=== PATIENT | male | born 1940 | race Caucasian/White ===

== ENCOUNTER 2020-11-05 18:30 | Inpatient (IN) | payer OTHER ==
[~2020-11-05] VITALS: Ht 188 cm; Wt 149.1 kg
[~2020-11-05 18:30] MED LIST: ASPI81EC PO; CLOT1TC TOP; FURO40 PO; LISI20 PO; LISINOPRIL PO; METF500 PO; METOPROLOL TARTRATE PO; NEBI10 PO; NIASPAN PO; NITR.4SL SL; OXYC5 PO; POTA8 PO; PRAV20 PO; SALS750 PO; TERB24TC TOP; WARF2.5 PO; WARF5 PO
[2020-11-05 19:19] LABS: PCO2 Arterial 54.7 mmHg (35-45); PO2 Arterial 70.5 mmHg (80-100); pH Blood Arterial 7.34 (7.35-7.45)
--- NOTE | 2020-11-05 19:21 | NUR ---
6.0 ETT, 23 CM AT [facility]
[2020-11-05 19:31] LABS: BASOPHILS ABSOLUTE AUTO 0.06 K/mm3 (0.00-0.23); BASOPHILS PERCENT AUTO 1 % (0-2); EOSINOPHILS ABSOLUTE AUTO 0.17 K/mm3 (0.00-0.68); EOSINOPHILS PERCENT AUTO 2 % (0-6); Hematocrit 45.2 % (37.0-53.0); Hemoglobin 14.5 g/dL (13.5-17.5); IMMATURE GRAN ABSOLUTE AUTO 0.03 K/mm3 (0.00-0.10); IMMATURE GRAN PERCENT AUTO 0 % (0-1); LYMPHOCYTES ABSOLUTE AUTO 2.64 K/mm3 (0.84-5.20); LYMPHOCYTES PERCENT AUTO 25 % (21-46); MONOCYTES ABSOLUTE AUTO 1.15 K/mm3 (0.16-1.47); MONOCYTES PERCENT AUTO 11 % (4-13); Mean Corpuscular HGB 27.3 pg (26.0-34.0); Mean Corpuscular HGB Conc 32.1 g/dL (31.5-36.5); Mean Corpuscular Volume 85 fL (80-100); Mean Platelet Volume 9.9 fL (9.1-12.4); NEUTROPHILS ABSOLUTE AUTO 6.49 K/mm3 (1.96-9.15); NEUTROPHILS PERCENT AUTO 62 % (41-73); Platelet Count 370 K/mm3 (150-400); RDW Coefficient Variation 13.3 % (11.7-14.2); RDW Standard Deviation 41.2 fL (35.1-46.3); Red Blood Cell Count 5.31 M/mm3 (4.30-5.90); White Blood Cell Count 10.54 K/mm3 (4.00-11.30)
[2020-11-05] MEDS ORDERED: ALBU2.5V5 INH (19:31)
[2020-11-05] MEDS ORDERED: ALLO100 PO (19:31)
[2020-11-05] MEDS ORDERED: Amlodipine Bes2.5 MG PO (19:33)
[2020-11-05] MEDS ORDERED: HYDROCHLOROTH12.5 MG PO (19:35)
[2020-11-05] MEDS ORDERED: FURO40 PO (19:35)
[2020-11-05] MEDS ORDERED: MIRT15 PO (19:36)
[2020-11-05] MEDS ORDERED: TOPROL XL200 MG PO (19:36)
[2020-11-05] MEDS ORDERED: LISI20 PO (19:36)
[2020-11-05] MEDS ORDERED: NITR.4SL SL (19:37)
[2020-11-05] MEDS ORDERED: METF500 PO (19:39)
[2020-11-05] MEDS ORDERED: TAMS.4ER PO (19:39)
[2020-11-05] MEDS ORDERED: PRAVASTATIN SOD40 MG PO (19:39)
[2020-11-05] MEDS ORDERED: SPIRIVA RESPIMAT4 G3 INH (19:40)
[2020-11-05 19:46] LABS: Albumin, Blood 3.8 g/dL (3.4-5.0); Albumin/Globulin Ratio 0.8 (0.8-1.8); Bilirubin, Total 0.8 mg/dL (0.1-1.0); Calcium, Blood 9.9 mg/dL (8.5-10.1); Creatinine, Blood 1.5 mg/dL (0.60-1.20); Globulin, Blood 4.6 g/dL (2.2-4.0); Magnesium, Blood 2.3 mg/dL (1.6-2.4); Potassium, Blood 4.5 mmol/L (3.5-5.5); Total Protein, Blood 8.4 g/dL (6.4-8.2)
[2020-11-05 20:09] LABS: International Normalized Ratio 1.04; Prothrombin Time Results 11.2 Sec (9.7-11.5)
[2020-11-05 20:15] LABS: SARS-Cov-2 (COVID-19) PCR, MMC NEGATIVE (NEGATIVE)
[2020-11-06 04:56] LABS: Bun/Creatinine Ratio 14.8 (12.0-20.0); Calcium, Blood 8.4 mg/dL (8.5-10.1); Creatinine, Blood 1.35 mg/dL (0.60-1.20); Potassium, Blood 4.2 mmol/L (3.5-5.5)
--- NOTE | 2020-11-06 06:34 | NUR ---
SHIFT SUMMARY PATIENT HAS DONE WELL THRU NIGHT. WAS ABLE TO TURN LEVOPHED OFF, VERSED DRIP DOWN TO 4 MG/HR. MAINTAINED DOPAMINE DRIP @ 2 MCG/KG/MIN. SMALL BM EARLY IN SHIFT. VENT SETTINGS LOWERED FIO2, LUNG SOUNDS REMAIN CLEAR IN THE UPPER LOBES, DIMINISHED IN THE LOWERS. ASSESSMENT IS CHARTED. VSS. WILL CONTINUE TO MONITOR.
--- NOTE | 2020-11-06 08:10 | NUR ---
ASSESSMENT- PT SEDATED WITH PROPOFOL AT 10 MCG/KG/MIN AND VERSED GTT AT 4 MG/HR. NO RESPONSE TO VERBAL OR PAINFUL STIMULUS. PERRL. NO PLANS FOR SEDATION HOLIDAY TODAY-CRITICAL AIRWAY, PLANS FOR TRACH PLACEMENT. ORALLY INTUBATED, TUBE SECURE. TOLERATING VENT SETTINGS. LUNGS COARSE THROUGOUT. SUCTIONED SMALL AMOUNT CLEAR BLOODY SECRETIONS. APICAL IRREGULAR, SLOW AFIB. IV DOPAMINE STOPPED, WILL MONITOR. RIGHT WRIST IV SITE DI, LEFT AC AND LEFT WRIST PIV DI. LR AT 125 CC/HR. LEFT WRIST RADIAL LILIAM DI WITH ADEQUATE WAVEFORM, POSITIONAL. OGT TO LIS WITH CLEAR BROWN DRAINAGE. UO VIA NELSON, LEAKING-LINEN CHANGE DONE. SCDS DONE. BILATERAL WRIST RESTRAINTS FOR SAFETY.
--- NOTE | 2020-11-06 08:30 | NUR ---
DR. ALAN HERE-UPDATED. PLANS FOR TRACHEOSTOMY PLACEMENT TOMOROW AM AT 0730. CALLED -AGREEABLE.
--- NOTE | 2020-11-06 08:45 | NUR ---
DR. WEBSTER HERE-UPDATED, ASSESSED PT. CT WAS ALREADY DONE. VSS. AFIB 58-63. LILIAM POSITIONAL, BP STABLE OFF DOPAMINE.
[2020-11-06] MEDS ORDERED: ELIQUIS2.5 MG PO (13:33)
[2020-11-06] MEDS ORDERED: CLOB.05TO TOP (13:35)
[2020-11-06] MEDS ORDERED: ZESTORETIC 20-121 EA PO (13:40)
[2020-11-06] MEDS ORDERED: METF500 PO (13:41)
[2020-11-06] MEDS ORDERED: METO100ER PO (13:42)
[2020-11-06] MEDS ORDERED: MIRT15 PO (13:43)
[2020-11-06] MEDS ORDERED: NITR.4SL SL (13:44)
[2020-11-06] MEDS ORDERED: POTA20PAC PO (13:44)
[2020-11-06] MEDS ORDERED: PRAVASTATIN SOD40 MG PO (13:45)
[2020-11-06] MEDS ORDERED: SENN187 PO (13:47)
--- NOTE | 2020-11-06 14:15 | NUR ---
REPOSITIONED, COUGHING WITH MOVEMENT. ABLE TO DECREASE FIO2 TO 60%
--- NOTE | 2020-11-06 15:45 | NUR ---
PT WITH STABLE VS. CT REPORT READ-PORTABLE CHEST XRAY DONE REGARDING POSSIBLE PNEUMO, DR. WEBSTER HERE-CLEARED XRAY. TOLERATING VENT WITHOUT ANY PROBLEMS. REMAINS SEDATED. BATH DONE. NELSON LEAKING-REPLACED.
--- NOTE | 2020-11-06 18:51 | NUR ---
PT WITH STABLE VS. TOLERATING VENT. SEDATION UNCHANGED, VERSED GTT AT 4 MG/HR, PROPOFOL GTT AT 10 MCG/KG/MIN, LR AT 125 CC/HR. TUBE SECURE. REPOSITIONED. URINE VERY CLOUDY YELLOW, NELSON REPLACED EARLIER, STILL SCANT LEAKAGE. LEFT RADIAL LILIAM DI. OGT TO LIS.
[2020-11-07 03:09] LABS: Source, Urine Catheter
[2020-11-07 03:11] LABS: Bilirubin, Urine Neg (Neg); Blood, Urine 5+ (Neg); Glucose Qualitative, Urine Neg (Neg); Ketones, Urine Neg (Neg); Leukocyte Esterase, Urine 1+ (Neg); Nitrite, Urine Neg (Neg); Protein, Urine 2+ (Neg); Specific Gravity, Urine 1.025 (1.003-1.022); Urobilinogen, Urine NORM (Normal)
[2020-11-07 03:18] LABS: Amorphous Heavy (0-Heavy); Appearance, Urine Turbid (Clear); Bacteria Few /hpf; Color, Urine Yellow (P-Yellow); Squamous Epithelial Cells Rare /hpf (Few)
[2020-11-07 03:38] LABS: BASOPHILS ABSOLUTE AUTO 0.01 K/mm3 (0.00-0.23); BASOPHILS PERCENT AUTO 0 % (0-2); EOSINOPHILS PERCENT AUTO 0 % (0-6); Hematocrit 38.1 % (37.0-53.0); Hemoglobin 12.2 g/dL (13.5-17.5); IMMATURE GRAN PERCENT AUTO 1 % (0-1); LYMPHOCYTES ABSOLUTE AUTO 0.71 K/mm3 (0.84-5.20); LYMPHOCYTES PERCENT AUTO 7 % (21-46); MONOCYTES ABSOLUTE AUTO 0.44 K/mm3 (0.16-1.47); MONOCYTES PERCENT AUTO 4 % (4-13); Mean Corpuscular HGB 27.1 pg (26.0-34.0); Mean Corpuscular Volume 85 fL (80-100); Mean Platelet Volume 9.5 fL (9.1-12.4); NEUTROPHILS ABSOLUTE AUTO 9.25 K/mm3 (1.96-9.15); NEUTROPHILS PERCENT AUTO 88 % (41-73); Platelet Count 319 K/mm3 (150-400); RDW Coefficient Variation 13.2 % (11.7-14.2); RDW Standard Deviation 40.4 fL (35.1-46.3); White Blood Cell Count 10.51 K/mm3 (4.00-11.30)
[2020-11-07 03:57] LABS: Bun/Creatinine Ratio 18.5 (12.0-20.0); Calcium, Blood 8.6 mg/dL (8.5-10.1); Creatinine, Blood 1.19 mg/dL (0.60-1.20)
--- NOTE | 2020-11-07 06:34 | NUR ---
SHIFT SUMMARY NO ACUTE CHANGES OVERNIGHT. ASSESSMENT IS CHARTED. VSS. WILL CONTINUE TO MONITOR
--- NOTE | 2020-11-07 07:41 | NUR ---
ASSUMED CARE FROM NOC SHIFT. OR CREW HERE TO TAKE PATIENT TO OR FOR TRACH PLACEMENT. NO ACUTE CHANGES NOTED, STOPPED VERSED AND PROPOFOL GTT PER ANESTHESIA REQUEST. ART LINE REMAINS LEFT WRIST.
--- NOTE | 2020-11-07 08:13 | NUR ---
11/07/20 0813 Olivia Leigh PATIENT ENTERED OR INTUBATED FROM ICU.
--- NOTE | 2020-11-07 10:34 | NUR ---
RETURNED FROM OR AT 0907 WITH NEW TRACH #8 XLT. REPORT RECEIVED FROM DR WALTER ANESTHESIOLOGIST. MOVED TO NEW ROOM ICU15. REMOVED OG AND WILL REPLACE WITH NG. 1015 PLACED 18FR NG AND CONFIRMED WITH 30CC AIR FLUSH. SPOKE WITH DR WEBSTER REGARDING HIGH BP. WILL START ON NEW PO MED. REMIANS ON VERSED 4MG/HR GTT AND PROPOFOL GTT 20MCG/HR.
--- NOTE | 2020-11-07 11:45 | NUR ---
TRACH NOTED TO DRAINAGE AROUND INSERTION SITE WITH THICK RED TINGE COLOR. CLEANED AREA. SUCTIONING THICK RED COLOR SPUTUM. DR WEBSTER AWARE. NEW ORDERS WILL BE PLACED TO START SCHEDULE NEB TX'S. CONTINUE TO MONITOR AND TX PRN.
--- NOTE | 2020-11-07 12:15 | NUR ---
GOOD RELIEF WITH FENTANYL 50MCG IVP PER ORDERS. RESTING COMFORTABLE, BP IMPROVING WITH NEW BP MED.
--- NOTE | 2020-11-07 13:58 | NUR ---
VERBAL ORDER PER DR WEBSTER TO TURN OFF ALL SEDATION AND SEE IF PATIENT WAKES UP AND DO A WEANING TRIAL IF TOLERATES.
--- NOTE | 2020-11-07 14:21 | NUR ---
PT WAKING UP, OPENS EYS BUT NOT ABLE TO FOLLOW ANY COMMANDS. TREMOR NOTED TO LEFT SHOULDER AREA. CONTINUE TO MONITOR.
--- NOTE | 2020-11-07 14:39 | NUR ---
INCREASE ALTERNESS, ABLE TO SQUEEZE HAND WITH HIS RIGHT HAND BUT GENERALIZED WEAKNESS TO OTHER EXT'S. INCREASE IN TREMORING NOTED. FENTANYL 50MCG IVP GIVEN FOR PAIN. WHEN ASKED IF HAVING ANY PAIN, NODS HEAD "YES".
--- NOTE | 2020-11-07 14:54 | NUR ---
DR WEBSTER AT BEDSIDE. ATTEMPTED WEANING TRIAL WITH PRESSURE SUPPORT, BUT NOT TOLERATE. INCREASE TREMOR NOTED AND DR WEBSTER THOUGHT IT MIGHT BE A SEIZURE. NEW ORDER TO RESTART PROPOFOL GTT AND GIVEN ATIVAN 2MG IVP NOW. PATIENT TREMOR HAS SUBSIDED AND RESTING COMFORTABLE. NEW ORDER FOR CT HEAD.
--- NOTE | 2020-11-07 15:57 | NUR ---
RETURNED FROM CT; TOLERATED WELL. PATIENT RESTING COMFORTABLE WITH PROPOFOL GTT AND NO TEREMOR NOTED.
--- NOTE | 2020-11-07 18:32 | NUR ---
PATIENT WENT TO TRACH PLACEMENT THIS AM. TRACH SIZE #8 XLT. MODERATE AMOUNT OF THICK SS DRAINAGE FROM TRACH SITE. SEDATION VACATION AND WEANING TRIAL ATTEMPTED THIS AFTERNOON, BUT TREMOR/SEIZURE ACTIVITY NOTED WHEN PATIENT WOKE UP. EYES OPEN BUT NOT ABLE TO FOLLOW ANY COMMANDS WHEN DR WEBSTER AT BEDSIDE. CT OF HEAD ORDER TO R/O SEIZURE OR MASS IN HEAD. RESTARTED PROPOFOL GTT ONLY BACK ON WITH X1 DOSE ATIVAN 2MG IVP WITH IMPROVEMENT NOTED; NO TREMOR. VENT SETTINGS REMAIN THE SAME. HYPERTENSIVE EARLY THIS AM 178-190'S; NORVASC PO STARTED WITH NEW NG TUBE PLACED. BP'S 150-160'S. NELSON PATENT BUT URINE COLOR BECOMING MORE CLOUDY. NO OTHER CHANGES NOTED. WILL REPORT OFF TO NOC SHIFT.
[2020-11-07 21:16] LABS: Calcium, Blood 8.6 mg/dL (8.5-10.1); Creatinine, Blood 1.35 mg/dL (0.60-1.20); Magnesium, Blood 2.7 mg/dL (1.6-2.4); Potassium, Blood 4.2 mmol/L (3.5-5.5)
--- NOTE | 2020-11-07 22:35 | NUR ---
ASSUMED CARE AT 1900 FROM GAB[facility] HURD. PT LYING IN BED ON THE VENTILATOR AC 16 vT 500, PEEP 10, 50% FIO2. PT ON PROPOFOL @ 20MCG/KG/MIN. ART LINE IN LEFT WRIST, COINCIDING WITH BLOOD PRESSURE CUFF. HEART RATE WNL, WITH MULTIFOCAL PVC'S. PT'S ELIF, ABD SOFT NG CLAMPED, NELSON TO GRAVITY DRAINAGE WITH DARK YELLOW RETURN. 1949, ART LINE DC'D, PRESSURE HELD X 5 MINUTES, THEN PRESSURE DRESSING APPLIED, NO EVIDENCE OF BLEEDING. PT HAVING TREMORS OF THE LEFT SHOULDER, NO FURTHER EVIDENCE OF ANY OTHER TREMULOUS ACTIVITY. PT'S BLOOD PRESSURE BEGAN DECREASING AFTER ART LINE REMOVED. 90'S/50S, DR. WEBSTER MADE ROUNDS, ORDERED LAB WORK. DONE. PT'S PROPOFOL TITRATED DOWN R/T BLOOD PRESSURES, PT BEGINS TO HAVE TREMULOUS ACTIVITY WITH HEAD, AND LEFT ARM. MOVING EXTREMITIES, BUT NOT TO COMMAND, EYES ARE OPEN, WILL NOT LOOK AT ME OR FOCUS. ASKED TO SQUEEZE HAND, MOVE ANKLES, WIGGLE TOES, LOOK AT ME, PT UNABLE TO DO SO. JAW, HEAD, AND LEFT CHEST, ARM, LEG ARE TREMULOUS. BLOOD PRESSURE NOW 109/51. TRACH SITE OOZING RED TINGED SECRETIONS. PROPOFOL @ 10MCG/KG/MIN. ECTOPY CONTINUES.
--- NOTE | 2020-11-07 23:16 | NUR ---
ERIC BEGAN TO FOLLOW COMMANDS AND ANSWER YES AND NO QUESTIONS. HE WAS ABLE TO WIGGLE TOES ON BOTH FEET AND SQUEEZE HIS RIGHT HAND, HE WAS UNABLE TO SQUEEZE MY HAND WITH HIS LEFT. HE IS ABLE TO MOVE HIS LEFT ARM BUT IT NOT ABLE TO SQUEEZE MY HAND. HE DID SAY HE WAS UNCOMFORTABLE, SO THE PROPOFOL WAS PUT BACK @ 15MCG/KG/MIN. HE DOES COUGH, BUT WHEN ASKED IF HE IS OK HE ANSWERS YES.
[2020-11-08 03:20] LABS: Base Excess Venous 4.5 mmol/L; Bicarbonate Venous 27.6 mmol/L (24.0-30.0); PCO2 Venous 46.4 mmHg (38-42); PO2 Venous 69.7 mmHg (38-42); pH Blood Venous 7.41 (7.34-7.37)
[2020-11-08 03:21] LABS: BASOPHILS ABSOLUTE AUTO 0.01 K/mm3 (0.00-0.23); BASOPHILS PERCENT AUTO 0 % (0-2); EOSINOPHILS PERCENT AUTO 0 % (0-6); Hematocrit 41.4 % (37.0-53.0); Hemoglobin 13.2 g/dL (13.5-17.5); IMMATURE GRAN PERCENT AUTO 1 % (0-1); LYMPHOCYTES ABSOLUTE AUTO 0.45 K/mm3 (0.84-5.20); LYMPHOCYTES PERCENT AUTO 3 % (21-46); MONOCYTES PERCENT AUTO 5 % (4-13); Mean Corpuscular HGB Conc 31.9 g/dL (31.5-36.5); Mean Corpuscular Volume 85 fL (80-100); Mean Platelet Volume 9.3 fL (9.1-12.4); NEUTROPHILS ABSOLUTE AUTO 13.33 K/mm3 (1.96-9.15); NEUTROPHILS PERCENT AUTO 91 % (41-73); Platelet Count 364 K/mm3 (150-400); RDW Coefficient Variation 13.3 % (11.7-14.2); RDW Standard Deviation 41.1 fL (35.1-46.3); Red Blood Cell Count 4.89 M/mm3 (4.30-5.90); White Blood Cell Count 14.59 K/mm3 (4.00-11.30)
[2020-11-08 03:39] LABS: Albumin, Blood 3.2 g/dL (3.4-5.0); Anion Gap 7 mmol/L (6-16); Blood Urea Nitrogen 28 mg/dL (8-24); Bun/Creatinine Ratio 22.2 (12.0-20.0); CO2, Blood 28 mmol/L (21-32); Calcium, Blood 8.8 mg/dL (8.5-10.1); Chloride, Blood 103 mmol/L (98-108); Creatinine, Blood 1.26 mg/dL (0.60-1.20); Glomerular Filtration Rate 55 (60-); Glucose, Blood 220 mg/dL (70-99); Magnesium, Blood 2.6 mg/dL (1.6-2.4); Phosphorus, Blood 3.2 mg/dL (2.5-4.9); Sodium, Blood 138 mmol/L (136-145)
--- NOTE | 2020-11-08 04:17 | NUR ---
ERIC HAS BEEN MORE RESPONSIVE, ANSWERING QUESTIONS AND FOLLOWING COMMANDS. HE HAS BEEN COUGHING, BUT SETTLES WITHOUT ASSIST. HIS TRACH SITE CONTINUES TO OOZE BOTH BLOOD AND PHLEGM. LUNGS COARSE T/O, ABDOMEN QUIET, NELSON TO GRAVITY DRAINAGE. PROPOFOL CONTINUES AT 20MCG/KG/MIN. PAS BILAT CALF. NO OTHER CHANGES THUS FAR.
--- NOTE | 2020-11-08 07:45 | NUR ---
PROPOFOL HAS BEEN TITRATED TO 25MCG/KG/HR PT APPEARS AGITATED.
--- NOTE | 2020-11-08 09:26 | NUR ---
PROPOFOL REMAINS UNCHANGED FROM THIS AM TITRATION. VSS.
--- NOTE | 2020-11-08 10:45 | NUR ---
PROPOFOL DRIP IS ON HOLD AT THIS TIME FOR SEDATION VACATION, DR SCHAEFFER AT BEDSIDE FOR ASSESSMENT.
--- NOTE | 2020-11-08 10:55 | NUR ---
VENT 7/5, SEDATION IS TURNED OFF. PT WITH SPONTANEOUS MOVEMENTS, RESPONDS TO VERBAL STIMULI, FOLLOWS VERBAL COMMNDS, EQUAL WEAK STRENGTH IN ALL 4 EXTREMETIES. PT LOOKS TO VERBAL STIMULI AND TRACKS WITH EYES. PT BEING PLACED ON BIPAP NOW BY DINO YEAGER
--- NOTE | 2020-11-08 12:45 | NUR ---
PT CONTINUES TO TOLERATE BIPAP WELL. VSS. PT RECIEVED INSULIN COVERAGE FOR AFTERNOON BLOOD GLUCOSE >270. VBG DRAWN RESULTS ARE PENDING
[2020-11-08 12:46] LABS: Base Excess Venous 4.1 mmol/L; Bicarbonate Venous 27.7 mmol/L (24.0-30.0); PCO2 Venous 41.2 mmHg (38-42); pH Blood Venous 7.44 (7.34-7.37)
--- NOTE | 2020-11-08 20:00 | NUR ---
ASSUMED CARE. BEDSIDE REPORT RECIEVED. PT RESTING QUIETLY IN BED. PT ON BIPAP VIA TRACH, TOLERATING WELL. TRACH SITE INTACT, OOZING CLEAR SECRETIONS. PT HAS PERIPHERAL IVS IN PLACE, L/AC, L/FOREARM, AND R/HAND. PT IS ALERT, ABLE TO NOD YES OR NO TO QUESTIONS. SEE SHIFT ASSESSMENT FOR FURTHER DETAILS. NO ACUTE NEEDS NOTED AT THIS TIME, WILL CONTINUE TO MONITOR.
--- NOTE | 2020-11-09 01:57 | NUR ---
PATIENT CONTINUES ON BIPAP VIA TRACH. TRACH SITE OOZING CLEAR SECRETIONS WITH OCCASIONAL RED STREAKS. SECRETIONS HAVE DECREASED THROUGHOUT SHIFT TO THIS POINT. PATIENT DENIES PAIN AT SITE AND IS TOLERATING TRACH/BIPAP WELL.
[2020-11-09 03:56] LABS: BASOPHILS ABSOLUTE AUTO 0.01 K/mm3 (0.00-0.23); BASOPHILS PERCENT AUTO 0 % (0-2); EOSINOPHILS PERCENT AUTO 0 % (0-6); Hematocrit 38.4 % (37.0-53.0); Hemoglobin 12.3 g/dL (13.5-17.5); IMMATURE GRAN PERCENT AUTO 1 % (0-1); LYMPHOCYTES ABSOLUTE AUTO 0.48 K/mm3 (0.84-5.20); LYMPHOCYTES PERCENT AUTO 4 % (21-46); MONOCYTES ABSOLUTE AUTO 1.22 K/mm3 (0.16-1.47); MONOCYTES PERCENT AUTO 9 % (4-13); Mean Corpuscular HGB 27.5 pg (26.0-34.0); Mean Corpuscular Volume 86 fL (80-100); Mean Platelet Volume 9.5 fL (9.1-12.4); NEUTROPHILS ABSOLUTE AUTO 11.93 K/mm3 (1.96-9.15); NEUTROPHILS PERCENT AUTO 87 % (41-73); Platelet Count 343 K/mm3 (150-400); RDW Coefficient Variation 13.9 % (11.7-14.2); RDW Standard Deviation 43.2 fL (35.1-46.3); Red Blood Cell Count 4.47 M/mm3 (4.30-5.90); White Blood Cell Count 13.74 K/mm3 (4.00-11.30)
[2020-11-09 04:19] LABS: Magnesium, Blood 2.8 mg/dL (1.6-2.4)
[2020-11-09 04:20] LABS: Albumin, Blood 3.2 g/dL (3.4-5.0); Albumin/Globulin Ratio 0.8 (0.8-1.8); Bilirubin, Total 0.6 mg/dL (0.1-1.0); Bun/Creatinine Ratio 26.2 (12.0-20.0); Calcium, Blood 8.7 mg/dL (8.5-10.1); Creatinine, Blood 1.26 mg/dL (0.60-1.20); Globulin, Blood 3.9 g/dL (2.2-4.0); Phosphorus, Blood 2.3 mg/dL (2.5-4.9); Potassium, Blood 3.8 mmol/L (3.5-5.5); Total Protein, Blood 7.1 g/dL (6.4-8.2)
--- NOTE | 2020-11-09 05:10 | NUR ---
ENTERED PATIENT ROOM AND FOUND BIPAP DISCONNECTED FROM TRACH, RECONNECTED IT AND ASSESSED THE SITE. SMALL AMOUND OF BLEEDING NOTED AROUND THE TRACH. PT COMMUNICATED THAT THE TRACH COLLAR FELT TOO TIGHT. RT CALLED IN AND ADJUSTED THE COLLAR. PT OCCASIONALLY INCREASES WORK OF BREATHING AND APPEARS ANXIOUS WHEN DRAWING BREATHS. I SPOKE WITH HIM ABOUT THE BIPAP SETTINGS AND HIS OXYGEN SATURATION LEVELS WHICH APPEARED TO HELP CALM HIM DOWN.
--- NOTE | 2020-11-09 07:07 | NUR ---
SHIFT SUMMARY. PT CONTINUES ON BIPAP VIA TRACH, SETTINGS REMAINED UNCHANGED THROUGHOUT SHIFT. PT RESTING QUIETLY IN BED, ABLE TO FOLLOW COMMANDS AND NOD YES OR NO TO QUESTIONS. NG TUBE IN PLACE, NO RESIDUALS NOTED THROUGHOUT SHIFT. NELSON CATHETER IN PLACE, DRAINING FARHAD URINE. SEE SHIFT ASSESSMENT FOR DETAILS. REPORT MADE TO ONCOMING RN.
--- NOTE | 2020-11-09 10:04 | NUR ---
Received report from Freddie GRIFFIN. Patient has new trach and did trach care, he has serous fluid leaking around trach. His settings are 12/6 50% and sats 95%. He has oG in place and when getting ready to give meds opened port and expelled air then hooked up to LIS and got out 800 mls of dark brown output. I then gave am meds and clamped. He chan s 20ga RH, 20ga LW, and 18ga LAC, all flushed and SL'd. He has tried to communicate with pictures and tablet, but is still unable r/t to weak.
--- NOTE | 2020-11-09 10:42 | NUR ---
Patient has been excepted at [facility] and will transfer out later today. Istrate by to see patient and added Hydralazine for hypertension. called and updated her on patient and transfer. VSS, See EMR. Patient continues to have frequent trach care for copius secretions around trach. He is able to shift himself in bed and ARMENDARIZ but remains very weak. No changes to BIPAP settings.
[2020-11-09 10:54] LABS: SARS-Cov-2 (COVID-19) PCR, MMC NEGATIVE (NEGATIVE)
--- NOTE | 2020-11-09 13:17 | NUR ---
Suctioned another 200 ml's of dark gastric output from KENDAL ye RN medicated for temp 100.3 and covered 2300 CBG. gave to see patient prior to him be transferred. Reach arrived and loaded him up and noah to [facility]. called report to Ellen GRIFFIN at [facility].
== END 2020-11-09 12:48 | disposition short-term general hospital (02) | DRG 4 ==
LOC: ER 18:30 → ICUW 19:59 → ER 19:59 → PCU 19:59 → ICUW 22:48 → PCU 11-08 16:18
PROVIDERS: Family Medicine; Internal Medicine Critical Care Medicine; Student in an Organized Health Care Education/Training Program; ADMIT Internal Medicine
PROC: 0BH17EZ Insertion of Endotracheal Airway into Trachea, Via Natural or Artificial Opening (ICD-10-PCS; principal; 2020-11-05)
PROC: 5A1945Z Respiratory Ventilation, 24-96 Consecutive Hours (ICD-10-PCS; 2020-11-05)
PROC: 3E033XZ Introduction of Vasopressor into Peripheral Vein, Percutaneous Approach (ICD-10-PCS; 2020-11-05)
PROC: 0CJS8ZZ Inspection of Larynx, Via Natural or Artificial Opening Endoscopic (ICD-10-PCS; 2020-11-07)
PROC: 0B110F4 Bypass Trachea to Cutaneous with Tracheostomy Device, Open Approach (ICD-10-PCS; 2020-11-07)
DX: C78.39 Secondary malignant neoplasm of other respiratory organs (principal); J96.01 Acute respiratory failure with hypoxia; C34.90 Malignant neoplasm of unspecified part of unspecified bronchus or lung; Z68.41 Body mass index [BMI] 40.0-44.9, adult; N17.9 Acute kidney failure, unspecified; E87.2 Acidosis; I48.20 Chronic atrial fibrillation, unspecified; J93.9 Pneumothorax, unspecified; Z20.822 Contact with and (suspected) exposure to COVID-19; I95.9 Hypotension, unspecified; R56.9 Unspecified convulsions; K22.8 Other specified diseases of esophagus; F32.9 Major depressive disorder, single episode, unspecified; E11.42 Type 2 diabetes mellitus with diabetic polyneuropathy; I10 Essential (primary) hypertension; E78.5 Hyperlipidemia, unspecified; J44.9 Chronic obstructive pulmonary disease, unspecified; F43.10 Post-traumatic stress disorder, unspecified; G47.33 Obstructive sleep apnea (adult) (pediatric); E66.9 Obesity, unspecified; E86.1 Hypovolemia; R00.1 Bradycardia, unspecified; I71.4 Abdominal aortic aneurysm, without rupture; R93.0 Abnormal findings on diagnostic imaging of skull and head, not elsewhere classified; F03.90 Unspecified dementia, unspecified severity, without behavioral disturbance, psychotic disturbance, mood disturbance, and anxiety; I25.10 Atherosclerotic heart disease of native coronary artery without angina pectoris; Z96.651 Presence of right artificial knee joint; Z88.8 Allergy status to other drugs, medicaments and biological substances; Z79.899 Other long term (current) drug therapy; Z79.82 Long term (current) use of aspirin; Z79.01 Long term (current) use of anticoagulants; Z79.84 Long term (current) use of oral hypoglycemic drugs; Z86.73 Personal history of transient ischemic attack (TIA), and cerebral infarction without residual deficits; Z85.828 Personal history of other malignant neoplasm of skin; Z95.1 Presence of aortocoronary bypass graft; Z87.891 Personal history of nicotine dependence
CPT/HCPCS: 31500; 31720; 36415; 36556; 36600; 51702; 70470; 70491; 71045; 71260; 80048; 80053; 80069; 81001; 82803; 82947; 83605; 83735; 84100; 85025; 85610; 85730; 86850; 86900; 86901; 87070; 87086; 87205; 93005; 93010; 94002; 94003; 94640; 94660; 94664; 96365-59; 96366-59; 96375-59; 96376-59; 99291-25; A9270; C9113; J0171; J1265; J1650; J2060; J2250; J2370; J2704; J2930; J3010; J3475; J7030; J7060; J7120; Q9967; U0004